=== PATIENT | female | born 1975 | race Caucasian/White ===

== ENCOUNTER 2019-06-06 09:17 | Inpatient (IN) ==
[2019-06-06] MEDS ORDERED: ASPIRIN PO ONE (09:57)
--- NOTE | 2019-06-06 10:12 | PROVIDER DOCUMENTATION ---
This chart was entered by Lore Justin Scribe, acting as scribe for Artemio Arreola MD. HPI-Chest Pain - General Source: patient - History of Present Illness-CP Location: reports: other (left anterior) Chest Pain Radiation: reports: neck (left) Quality of Pain: reports: sharp, stabbing Severity in ED: moderate Onset/Duration: last night Timing: intermittent Context/Activities at Onset: reports: light activity Modifying Factors: improves with: nothing Associated Symptoms: reports: shortness of breath, syncope (x3). denies: abdominal pain, back pain, dizziness, fever/chills, headache, nausea, vomiting Nitro Today/Relief: no nitro taken today Aspirin Treatment Today: 325 mg x 1, provided by ED Prior Chest Pain/Cardiac Workup: reports: no prior chest pain Similar Symptoms Previously?: No Recently Seen Here or By Another Healthcare Provider: No <Artemio Arreola - Last Filed: 06/06/19 11:35> <Victoriano Drew - Last Filed: 06/06/19 11:53> - General Chief Complaint: Chest Pain Stated Complaint: CHEST PAIN,DIZZINESS,HERNANDEZ Time Seen by Provider: 06/06/19 09:29 Allergies/Adverse Reactions: Patient Allergies Allergy/AdvReac Type Severity Reaction Status Date / Time Sulfa (Sulfonamide Allergy Severe anaphylacti Verified 06/06/19 09:50 Antibiotics) c morphine AdvReac Severe oversedates Verified 06/06/19 09:50 hydromorphone HCl * AdvReac Intermediate causes Verified 06/06/19 09:50 [From Dilaudid] veins to infiltrate when given IVP quetiapine [From Seroquel] AdvReac panic Verified 06/06/19 09:50 attack Home Medications: Home Medication List Medication Instructions Recorded Confirmed Last Taken Type Clonazepam 2 mg PO BID 12/02/17 09/28/18 09/26/18 21:00 History Rosuvastatin Calcium 1 tab PO QHS 05/02/18 09/28/18 09/27/18 09:00 History Sumatriptan Succinate 1 tab PO DIRECTED 05/02/18 09/28/18 09/14/18 History Trazodone HCl 1 tab PO QHS 05/02/18 09/28/18 09/26/18 21:00 History Zolpidem [Ambien] 10 mg PO QHS 05/02/18 09/28/18 09/26/18 21:00 History Metformin HCl [Metformin HCl ER] 500 mg PO HS 07/01/18 09/28/18 09/27/18 09:00 History Ibuprofen 800 mg PO PRN PRN 07/23/18 09/28/18 09/21/18 History Omeprazole 20 mg PO DAILY 07/23/18 09/28/18 08/23/18 History Cyclobenzaprine [Flexeril] 10 mg PO Q6HR 07/30/18 09/28/18 08/23/18 History Albuterol Sulfate [Proair Hfa] 8.5 gm IH PRN PRN 09/24/18 09/28/18 08/23/18 History LISINOpril [Prinivil] 20 mg PO DAILY 09/24/18 09/28/18 09/27/18 17:00 History Aspirin [Ecotrin] 325 mg PO BID #60 tablet. 09/28/18 Unknown Rx Oxycodone HCl/Acetaminophen 1 each PO Q4-6H PRN PRN #40 tablet 09/28/18 Unknown Rx [Percocet 5-325 mg Tablet] Wheelchair 1 each MC ONCE #1 each 09/28/18 Unknown Rx Cetirizine [Zyrtec] 10 mg PO DAILY #20 tab 02/21/19 Unknown Rx D-Methorphan/P-Epd/Bpm [Bromfed Dm 5 ml PO Q4H PRN #120 ml 02/21/19 Unknown Rx Liquid] Ondansetron [Zofran] 4 mg PO Q6H PRN PRN #20 tab 02/21/19 Unknown Rx Prednisone 20 mg PO DIRECTED #18 tab 02/21/19 Unknown Rx Fluoxetine [Prozac] 20 mg PO DAILY 06/06/19 06/06/19 06/06/19 08:00 History Ibuprofen [Ibu] 800 mg PO DAILY 06/06/19 06/06/19 06/05/19 08:00 History Lisinopril 20 mg PO DAILY 06/06/19 06/06/19 06/06/19 08:00 History Omeprazole 20 mg PO DAILY 06/06/19 06/06/19 06/06/19 08:00 History Sumatriptan Succinate 100 mg PO DAILY 06/06/19 06/06/19 06/03/19 08:00 History Zolpidem [Ambien] 10 mg PO DAILY 06/06/19 06/06/19 06/06/19 08:00 History - History of Present Illness-CP Nature of Presenting Problem: 43 yof presents to the ed with c/o intermittent chest pain with pain radiating into neck with syncope x3 sob all onset yesterday. pt sts called 911 last not but does not remember if they came or not. pt has never had a cardiac workup and on exam is anxious but otherwise normal (Artemio Arreola) Review of Systems - Adult - REVIEW OF SYSTEMS - ADULT Constitutional: denies: chills, fever Eyes: reports: no symptoms reported Ears, Nose, Mouth & Throat: reports: no symptoms reported Cardiovascular: reports: see HPI, chest pain, syncope (x3). denies: palpitations Respiratory: reports: see HPI, shortness of breath. denies: wheezing Gastrointestinal: denies: abdominal pain, diarrhea, nausea, vomiting Genitourinary: reports: no symptoms reported Musculoskeletal: reports: see HPI, neck pain. denies: back pain Integumentary: reports: no symptoms reported Neurological: denies: dizziness/vertigo, headache/migraines Psychiatric: reports: no symptoms reported Endocrine: reports: no symptoms reported Hematologic/Lymphatic: reports: no symptoms reported Allergic/Immunologic: reports: no symptoms reported All Other Systems: Reviewed and Negative <Artemio Arreola - Last Filed: 06/06/19 11:35> Past History - Adult - PAST MEDICAL HISTORY-ADULT Review of Records: reports: Old Records Reviewed, Nursing Assessment Review, Medications Reviewed, Social history reviewed & non-contributory. Major Childhood Illnesses: reports: denies history Cardiovascular: reports: HTN, hyperlipidemia Respiratory: reports: asthma Gastrointestinal: reports: denies history Obstetrical/Gynecological: reports: denies history Genitourinary: reports: denies history Musculoskeletal: reports: chronic pain, orthopedic injury Neurological: reports: denies history Psychiatric: reports: anxiety, depression Endocrine/Immune: reports: Diabetes Diabetes Type: Type 2 Diabetes controlled by:: Diet Other Conditions: reports: denies history - PRIOR SURGERIES/PROCEDURES Surgical/Procedure History: reports: recent surgery, hysterectomy, , orthopedic (extremity), other (cervical conization) - PRIOR HOSPITALIZATIONS Prior Hospitalizations: reports: for other non-related - IMMUNIZATION STATUS Childhood Immunizations: UTD Flu Vaccine: UTD - FAMILY HISTORY Family History: reviewed, not pertinent - SOCIAL HISTORY Smoking: quit greater than 1 year Substance Use: denies Alcohol Use Frequency: never Living Situation: family <Artemio Arreola - Last Filed: 06/06/19 11:35> Physical Exam-General - PHYSICAL EXAM-ADULT Initial Vital Signs Reviewed: Yes - CONSTITUTIONAL General Appearance: appears well, alert, anxious - EYES Eyes: PERRL/EOMI, pink conjunctivae - HEAD, EARS, NOSE, MOUTH & THROAT HENMT: moist mucous membranes, normal ENT inspection - NECK Neck: non-tender (pain resolved), full range of motion, normal inspection - RESPIRATORY Respiratory: chest non-tender, lungs clear, normal breath sounds - CARDIOVASCULAR Cardiovascular: normal peripheral pulses, regular rate, rhythm - GASTROINTESTINAL (ABDOMEN) Abdominal Exam: normal bowel sounds, non tender, soft - LYMPHATIC Lymphatic: no adenopathy - MUSCULOSKELETAL Back Exam: normal inspection, no CVA tenderness, no vertebral tenderness Extremity: normal range of motion, non-tender, normal gait, normal inspection, no pedal edema, no calf tenderness, normal capillary refill - SKIN Integumentary: normal color, normal turgor, warm/dry - NEUROLOGIC Neurologic: grossly normal, no motor/sensory deficits - PSYCHIATRIC Psych/Mental Status: normal thought content, normal thought process, oriented x 3, anxious <Artemio Arreola - Last Filed: 06/06/19 11:35> - HEART Score HEART Score: History: Moderately Suspicious HEART Score: ECG: Non-Specific Repolarization Disturbance/LBBB/PM HEART Score: Age: < or = 45 Years HEART Score: Risk Factors for Atherosclerotic Disease: 1 or 2 Risk Factors HEART Score: Troponin: < or = Normal Limit Total HEART Score:: 3 <Artemio Arreola - Last Filed: 06/06/19 11:35> Progress - PLAN OF CARE/RESULTS Result Diagrams: 06/06/19 10:22 06/06/19 10:22 - REASSESSMENT Reassessment #1 Time Reassessed: 10:47 (pt is resting in bed in no distress at this time) Status: improving Reassessment #2 Time Reassessed: 11:35 ( at bedside ) Status: unchanged - EKG 1 Time of EKG reading by physician:: 09:22 EKG Read and Signed by:: Artemio Arreola EKG Interpretation (*Must complete 3 of following elements*): Abnormal Rate: 56 Rhythm: sinus bradycardia QRS: poor R wave progression (new), other (low voltage qrs) Prior EKG Comparison: changes noted Comments: inferior infarct, age undetemiend - XRAY 1 XRAY: Bilateral XRAY Study: Chest Impression: See EMR Report (EXAM: CHEST-2 VIEWS 06/06/2019 HISTORY: chest pain TECHNIQUE: PA and lateral chest COMMENT: There is no evidence of acute cardiac or pulmonary disease. Compared to 05/02/2018 there has been no signific ant change in the appearance of the chest. IMPRESSION: No acute disease. Electronically signed by Tomi Rich 06/06/2019 10:44 AM 06/06/19 1044 Interpreting Physician: Tomi Rich MD Dictated Date/Time: 06/06/19 1043 cc: Artemio Arreola MD; None,PCP) - CONSULTS/PCP/HOSPITALIST Notification #1 *Consult/PCP/Hospitalist*: hospitalist dr price Time Discussed: 11:31 (spoke with summer [employer] ) Reason/Comments: chest pain Consult Disposition: Admit - CHANGE OF SHIFT REPORT (ED Provider) 1 Report Given and Care Transferred to:: Rajendra Time of Transfer: 10:12 Items Pending: Labs, XRAY Results, Physician Consult/Arrival <Artemio Arreola - Last Filed: 06/06/19 11:35> - PLAN OF CARE/RESULTS Result Diagrams: 06/06/19 10:22 06/06/19 10:22 <Victoriano Drew - Last Filed: 06/06/19 11:53> - PLAN OF CARE/RESULTS Progress/Plan/Lab Results: Vital Signs - 8 hr 06/06/19 09:22 06/06/19 09:30 06/06/19 09:32 Temperature 98.0 F Pulse Rate 63 Respiratory Rate 18 Blood Pressure 131/82 127/82 O2 Sat by Pulse Oximetry 98 96 97 06/06/19 09:33 06/06/19 09:40 06/06/19 09:50 Temperature Pulse Rate 73 60 66 Respiratory Rate Blood Pressure 134/84 O2 Sat by Pulse Oximetry 98 97 98 06/06/19 10:00 06/06/19 10:03 06/06/19 10:11 Temperature Pulse Rate 77 65 121 H Respiratory Rate Blood Pressure 129/82 O2 Sat by Pulse Oximetry 99 97 97 06/06/19 10:20 06/06/19 10:22 Temperature Pulse Rate 67 72 Respiratory Rate Blood Pressure 164/77 O2 Sat by Pulse Oximetry 99 99 Laboratory Results - last 24 hr 06/06/19 06/06/19 06/06/19 10:22 10:22 10:22 WBC 7.61 RBC 4.73 Hgb 12.3 Hct 38.4 MCV 81.2 MCH 26.0 L MCHC 32.0 L RDW Std Deviation 14.5 Plt Count 333 MPV 10.5 H Neut % (Auto) 52.1 Lymph % (Auto) 37.1 Emmet % (Auto) 6.6 Eos % (Auto) 4.2 Baso % (Auto) 0.0 Neut # (Auto) 3.97 Lymph # (Auto) 2.82 Emmet # (Auto) 0.50 Eos # (Auto) 0.32 Baso # (Auto) 0.00 PT INR PTT (Actin FS) Sodium 140 Potassium 4.3 Chloride 105 Carbon Dioxide 24 L Anion Gap 11 BUN 22 Creatinine 0.6 Estimated GFR/1.73 m2 > 60 BUN/Creatinine Ratio 37 Glucose 97 Calculated Osmolality 283 Calcium 9.5 Total Bilirubin 0.18 L AST 15 ALT 11 Alkaline Phosphatase 91 Creatine Kinase 222 H Creatine Kinase Index 0.6 CK-MB (CK-2) 1.42 Troponin T Bth-A-Bjomoekmvhu Pept 11 Total Protein 6.8 Albumin 4.3 Globulin 2.5 Albumin/Globulin Ratio 1.7 06/06/19 06/06/19 10:22 10:22 WBC RBC Hgb Hct MCV MCH MCHC RDW Std Deviation Plt Count MPV Neut % (Auto) Lymph % (Auto) Emmet % (Auto) Eos % (Auto) Baso % (Auto) Neut # (Auto) Lymph # (Auto) Emmet # (Auto) Eos # (Auto) Baso # (Auto) PT 12.9 INR 0.90 PTT (Actin FS) 24.8 Sodium Potassium Chloride Carbon Dioxide Anion Gap BUN Creatinine Estimated GFR/1.73 m2 BUN/Creatinine Ratio Glucose Calculated Osmolality Calcium Total Bilirubin AST ALT Alkaline Phosphatase Creatine Kinase Creatine Kinase Index CK-MB (CK-2) Troponin T < 0.010 Ruo-C-Dhkjpdiqupm Pept Total Protein Albumin Globulin Albumin/Globulin Ratio Orders Category Date Time Status Cardiac Monitoring DIRECTED Care 06/06/19 09:58 Active Oxygen Therapy- ED Nursing DIRECTED Care 06/06/19 09:58 Active Saline Loc NOW Care 06/06/19 09:58 Active CHEST-2 VIEWS [RAD] Stat Exams 06/06/19 09:58 Completed CBC WITH ELECTRONIC DIFF [HEME] Stat Lab 06/06/19 10:22 Completed CK PROFILE [SP CHEM] Stat Lab 06/06/19 10:22 Completed COMPREHENSIVE METABOLIC PANEL [CHEM] Stat Lab 06/06/19 10:22 Completed PRO B-NATRIURETIC PEPTIDE Stat Lab 06/06/19 10:22 Completed PROTIME WITH INR [COAG] Stat Lab 06/06/19 10:22 Completed PTT [COAG] Stat Lab 06/06/19 10:22 Completed TROPONIN T Stat Lab 06/06/19 10:22 Completed Aspirin Med 06/06/19 09:57 Discontinued 325 mg PO NOW ONE CP/SOB/Palp >45 yrs of Age Stat Oth 06/06/19 09:57 Ordered EKG [EKG] Stat Ther 06/06/19 09:22 Ordered Departure - Critical Care Note This patient required my direct & personal management of CC.: No <Artemio Arreola - Last Filed: 06/06/19 11:35> - Departure Date of Disposition Decision: 06/06/19 Time of Disposition Decision: 11:53 Certified Medical Emergency: Emergent - Critical Care Note This patient required my direct & personal management of CC.: No <Victoriano Drew - Last Filed: 06/06/19 11:53> - Departure DIAGNOSIS: Chest pain Disposition: ADMITTED INPATIENT 09 Condition: Stable Referrals and Follow-Ups: None,PCP [Primary Care Provider] - Attestation - Physician/ MANDI Attestation Patient care was provided by Advanced Practice Provider:: No The physician spent face to face time with patient:: Yes Advanced Practice Provider documentation review:: Supervising physician onsite and consulted in the evaluation and care of this patient. The physician did have a face to face encounter with the patient. <Artemio Arreola - Last Filed: 06/06/19 11:35> - Physician/ MANDI Attestation Patient care was provided by Advanced Practice Provider:: No The physician spent face to face time with patient:: Yes Advanced Practice Provider documentation review:: Supervising physician onsite and consulted in the evaluation and care of this patient. The physician did have a face to face encounter with the patient. <Victoriano Drew - Last Filed: 06/06/19 11:53> This chart was documented by the indicated scribe, (Lore Justin Scribe) and accurately reflects the services I performed and decisions made by Christina batista Kent A., MD, as attested by the provider's signature.
[2019-06-06 10:35] LABS: EOS# 0.32 X1000 (0.0-0.7); EOS% 4.2 % (0.0-10.0); HEMATOCRIT 38.4 % (37.0-47.0); HEMOGLOBIN 12.3 g/dL (12.0-16.0); LYMPH# 2.82 X1000 (1.2-3.4); LYMPH% 37.1 % (20.5-51.1); MCV 81.2 FL (81-99); MONO% 6.6 % (1.7-9.3); MPV 10.5 FL (7.4-10.4); NEUT# 3.97 X1000 (1.4-6.5); NEUT% 52.1 % (42.2-75.2); PLT 333 X1000 (130-400); RBC 4.73 XMIL (4.2-5.4); RDW 14.5 % (11.5-14.5); WBC 7.61 X1000 (4.8-10.8)
[2019-06-06 10:41] LABS: INR 0.9; PROTIME 12.9 Seconds (11.0-16.0); PTT 24.8 Seconds (22.3-41.8)
--- NOTE | 2019-06-06 10:46 | Diag Imaging Result Doc PS360 ---
EXAM: CHEST-2 VIEWS 06/06/2019 HISTORY: chest pain TECHNIQUE: PA and lateral chest COMMENT: There is no evidence of acute cardiac or pulmonary disease. Compared to 05/02/2018 there has been no significant change in the appearance of the chest. IMPRESSION: No acute disease. Electronically signed by Tomi Rich 06/06/2019 10:44 AM
[2019-06-06 10:53] LABS: AGAP 11; ALB/GLOB RATIO 1.7; ALBUMIN 4.3 g/dL (3.5-5.0); ALKALINE PHOSPHATASE 91 U/L (32-104); BUN 22 mg/dL (8-22); CALCIUM 9.5 mg/dL (8.8-10.2); CHLORIDE 105 mmol/L (98-107); COSMO 283; CREATININE 0.6 mg/dL (0.5-0.9); ESTIMATED GFR > 60; GLUCOSE 97 mg/dL (70-104); GOT 15 U/L (10-30); GPT 11 U/L (10-36); POTASSIUM 4.3 mmol/L (3.5-5.1); SODIUM 140 mmol/L (136-145); TCO2 24 mmol/L (25-35); TOTAL BILIRUBIN 0.18 mg/dL (0.20-1.00); TOTAL PROTEIN 6.8 g/dL (6.3-8.3)
[2019-06-06 11:05] LABS: CK PROFILE 222 U/L (24-173)
[2019-06-06 11:23] LABS: CK INDEX 0.6 (0.0-2.5); CK-MB 1.42 ng/mL (0.0-5.0)
[2019-06-06 14:27] LABS: URINE SOURCE CLEAN CATCH
[2019-06-06 14:28] LABS: HEMOGLOBIN A1C 5.5 % (4.8-6.0)
[2019-06-06 14:31] LABS: BILIRUBIN URINE NEGATIVE (NEGATIVE); BLOOD URINE NEGATIVE (NEGATIVE); COLOR YELLOW; GLUCOSE URINE NEGATIVE (NEGATIVE); KETONE URINE NEGATIVE (NEGATIVE); LEUKOCYTES URINE TRACE (NEGATIVE); NITRITE URINE NEGATIVE (NEGATIVE); PROTEIN URINE NEGATIVE (NEGATIVE); SP GRAVITY URINE 1.024; TURBIDITY URINE CLEAR (CLEAR); UROBILINOGEN URINE NORMAL (NORMAL)
[2019-06-06 14:32] LABS: URINE BACTERIA 1+ /HPF; URINE RBC <10 /HPF (<10); URINE WBC <10 /HPF (<10)
[2019-06-06 14:35] LABS: UR EPITHELIAL CELLS <10 /HPF (<10)
[2019-06-06 14:42] LABS: INR 0.9; PROTIME 12.8 Seconds (11.0-16.0)
[2019-06-06 14:43] LABS: UR AMPHETAMINES QUAL NONE DETECTED (NONE DETECT); UR BARBITUATES QUAL NONE DETECTED (NONE DETECT); UR BENZODIAZEPIN QUAL NONE DETECTED (NONE DETECT); UR CANNABINOIDS QUAL NONE DETECTED (NONE DETECT); UR COCAINE QUAL NONE DETECTED (NONE DETECT); UR METHADONE QUAL NONE DETECTED (NONE DETECT); UR OPIATES QUAL NONE DETECTED (NONE DETECT); UR OXYCODONE QUAL NONE DETECTED (NONE DETECT); UR PCP QUAL NONE DETECTED (NONE DETECT)
--- NOTE | 2019-06-06 14:58 | Diag Imaging Result Doc PS360 ---
EXAM: CT HEAD W/O CONTRAST 06/06/2019 HISTORY: syncopal episode, migraines TECHNIQUE: This exam was performed using automated exposure control, adjustment of mA or kV according to patient size, and/or use of iterative reconstruction technique. COMMENT: There is no evidence of mass effect, bleed, or abnormal extra-axial fluid collection. The visualized paranasal sinuses are clear. The calvarium is intact. Compared to 11/25/2013 the appearance the brain has not changed significantly. IMPRESSION: No evidence of acute intracranial disease. Electronically signed by Tomi Rich 06/06/2019 2:55 PM
--- NOTE | 2019-06-06 15:06 | HISTORY AND PHYSICAL ---
CHIEF COMPLAINT: Chest pain and syncopal episode. HISTORY OF PRESENT ILLNESS: Ms. Rodriguez is a 43-year-old female who presents to the ER today complaining of midsternal chest pain that radiates to the left side and into the abdomen. The patient states that this pain started last p.m. The patient states she became real diaphoretic when she started having this chest pain and very weak. The patient states that she laid down on the couch when this pain had started and she believes she called [facility] at that time. The patient says she does not remember anything else until sometime later, she woke up and was still on her couch with the phone in her hand. The phone was still on and the doors were open. The patient states that she subsequently went to bed at that time not for sure what had happened to her. She woke up this morning. She was still having chest pain. She called EMS at that time and was informed that someone did come out from the [facility] and check on her last night and that everything appeared to be fine. The patient does not remember anyone coming to her home. She states that she is not sure if she passed out or what actually could have happened last pm. The patient states that she has been having a headache for greater than a week with dizziness. The headache is to the right side. She describes it as a squeezing. The patient states she does have migraines and she takes Imitrex whenever she has a migraine but this has not been helping and this headache seems to be different than her other migraines. The patient states when she woke up this morning, she was very weak all over and she felt like her body was cramping. The patient does have a past medical history of hypertension, depression, high cholesterol, chronic migraines on Imitrex. The patient states she did have diabetes and was on metformin. However, her yacht hand took her off her metformin, stated that she did not need it any more and this was some time back. The patient is complaining of chest pain and headache at this time. Upon palpation of her chest, she does have a lot of tenderness to the midsternal area and to the left upper shoulder area. The patient states it is hard for her to hold her head forward. She has pain in the neck when she tries to do that. Her headache is described on the right side of her face and head area. The patient states she has even had some numbness in her face before from her headaches. The patient denies any nausea at this time. When asked the patient if she was having trouble with her urination, she states that she has been urinating a lot more frequently lately. The patient denies any problems with her bowels. Denies any blood in her stool or any vomiting episodes. The patient does have full strength all throughout and is awake, alert, and oriented. Pupils are reactive. There is no slurred speech. There is no facial drooping noted. PAST MEDICAL HISTORY: Chronic migraines, hypertension, hyperlipidemia, prediabetes (on metformin for some time), GERD, depression, allergies. PAST SURGICAL HISTORY: Right ankle reconstruction in 2001, three cysts removed from her ovaries in 2010, 2015, and 2016, a total hysterectomy in 2017, precancerous lesions removed from her cervix in 2001, an umbilical hernia repair in 2015, and left foot surgery in 2018. FAMILY HISTORY: Father had coronary artery disease, hypertension, MIs. He after his coronary artery bypass surgery. Mother had hypertension, cancer of the bone which subsequently metastasized and she from complications of her cancer. SOCIAL HISTORY: The patient denies any smoking or drug abuse. The patient states that she was an alcoholic but she quit drinking greater than a year ago. The patient lives in [place] and works at [employer] in [place]. ALLERGIES: Morphine, Dilaudid, and sulfa drugs. MEDICATIONS: Lisinopril 20 mg p.o. daily, Prozac 20 mg p.o. daily, Zyrtec 10 mg p.o. daily, albuterol/ProAir haler p.r.n. as needed, omeprazole 20 mg p.o. daily, Ambien 10 mg p.o. at bedtime, sumatriptan 100 mg p.o. p.r.n. headaches, ibuprofen 800 mg t.i.d. p.r.n. pain. LABORATORY DATA AND DIAGNOSTICS: White blood cell count 7.61, hemoglobin 12.3, hematocrit 38.4, platelet count 10.2. PT 12.9, INR 0.9, PTT 24.8. Sodium 140, potassium 4.3, chloride 105, carbon dioxide 24, BUN 22, creatinine 0.6, estimated GFR is greater than 60, glucose is 97, calcium is 9.5. Bilirubin 0.1, AST is 15, ALT is 11, alkaline phosphatase 91. Creatine kinase is 222, CK index is 0.6, CK-MB is 1.42, troponin is less than 0.01. ProBNP is 11. Chest x-ray shows no acute disease. REVIEW OF SYSTEMS: A 12 point review of systems was performed and all were negative except for as stated above in the HPI. PHYSICAL EXAMINATION: VITAL SIGNS: Temperature 98.0 degrees, heart rate 60, blood pressure 122/86, O2 saturation 97% on room air. Height 5 feet 4 inches, weight 207 pounds. GENERAL: This is a 43-year-old, female, lying on the ER stretcher. She is in no acute distress at this time. Follows all commands. Answers all questions appropriately. HEENT: Atraumatic, normocephalic. Pupils equal, round, reactive to light. Mucous membranes are moist. NECK: Supple. No lymphadenopathy. Trachea is midline. No JVD or bruits noted. CARDIOVASCULAR: Regular rate and rhythm. S1 and S2. No murmurs, gallops, or rubs appreciated. RESPIRATORY: Lung sounds are clear with equal chest excursion. Respirations are nonlabored with no accessory muscle usage. GI: Abdomen is soft, nontender, nondistended. Bowel sounds are present x4. NEUROLOGIC: The patient is awake, alert, and oriented. Follows all commands. Cranial nerves intact. MUSCULOSKELETAL: Full distal strength noted. No abnormalities. No deformities. EXTREMITIES: No clubbing, cyanosis, or edema noted. DP and PT pulses are present and palpable. SKIN: Warm, dry, and intact. No rashes, bruises. No diaphoresis. The patient does have tenderness with palpation to the midsternal chest region and left upper shoulder. ASSESSMENT AND PLAN: 1. We will admit this patient to the medical floor to rule out acute coronary syndrome versus unstable angina versus costochondritis. The patient is tender to the midsternal area upon palpation and the upper shoulder area. CK and troponins are negative at this time. An EKG is negative. We will repeat serial CK and troponins, and EKG. We will perform a echocardiogram in the morning on this patient. Consult Cardiology. 2. Syncopal episode. We will work this patient up for a possible transient ischemic attack. This could be related to her migraines. We will do a CT of the head, do carotid Doppler studies. Consult Dr. Fernández in the morning. Do MRI of the brain tomorrow. Start this patient on aspirin daily. 3. Hypertension. We will restart the patient's home blood pressure medicines and monitor the patient closely. BP is stable at this time. 4. Prediabetes. The patient's glucose in the emergency room is within normal range. We will do an A1c on the patient just to check and see how she has been doing. We will not order FSBS at this time. 5. Hyperlipidemia. Ordered a lipid profile. We will start the patient on Lipitor daily. We will admit this patient to the medical floor, place her on telemetry, and start her on a diabetic diet. We will reorder labs and chest x-ray on her in the morning. We will do the CT of the head as ordered. We ordered MRI of the brain on Friday. We are consulting Dr. Fernández and Dr. Contreras. Echocardiogram is ordered. Serial CK and troponins and EKGs are ordered. Repeat labs in the am. Dictated by DANIELLE Márquez for Phuc Luke MD cc: MD Ambrocio Wilder MD MTDD
[2019-06-06 15:09] LABS: CK INDEX 0.6 (0.0-2.5); CK-MB 1.35 ng/mL (0.0-5.0)
[2019-06-06] MEDS: TYLENOL PO PRN (16:34)
--- NOTE | 2019-06-06 16:41 | PROGRESS NOTE ---
DATE: 06/06/2019 SUBJECTIVE: The patient was admitted early this morning by the hospitalist with headache, syncope, chest pain. She was admitted to rule out cardiac origin of the symptoms and also for carotid ultrasound to rule out etiology for syncope or TIA. CT scan was normal. Urine drug screen was negative for controlled substances. She takes Klonopin 2 mg b.i.d., Flexeril 10 mg q.6 hours, ibuprofen 800 mg p.r.n., lisinopril 20 mg 1 daily, metformin, omeprazole, Percocet, prednisone, Crestor, Imitrex, trazodone, and Ambien. She stated that the only control substance she takes now is Ambien. She has not taken any preventative medicine for migraines. OBJECTIVE: Chest is clear. There is mild left costosternal tenderness to palpation. DIAGNOSTIC STUDIES: Enzymes have been normal. EKG is not available. PLAN: Carotid ultrasound tomorrow morning, start Trokendi XR 100 mg daily to prevent migraines. cc: Ambrocio Tse MD
--- NOTE | 2019-06-06 17:19 | HISTORY AND PHYSICAL ---
ADDENDUM: Cardiovascular: Regular rate and rhythm. Pulmonary: Bilateral breath sounds clear to auscultation. GI: Was soft, nontender, nondistended. Bowel sounds are positive. In any case, she is a patient of Dr. Tse and I guess he has taken over care. I did not realize that until after the fact. But any case she came in for chest pain, atypical, and we will continue to follow. Dr. Tse will resume care. This is a [id number] encounter note with Leena Madrid. cc: MD Ambrocio Wilder MD
[2019-06-06] MEDS ORDERED: LIPITOR PO SCH (21:00)
--- NOTE | 2019-06-06 21:04 | CARDIOLOGY CONSULTATION ---
DATE: 06/06/2019 CONSULTATION REQUESTED BY: The hospitalist service. PRIMARY PHYSICIAN: Robbie SANTOS in [place]. CHIEF COMPLAINT: Chest pain and syncope. HISTORY: Mrs. Rodriguez is a 43-year-old female. She was in her usual state of health until yesterday about 5:30 p.m. She was sitting on a couch when all the sudden she started feeling hurting and heaviness in the chest. This went on for a while. She called her sister and then call 911 and then she lost consciousness. The sister got to the house and by the time the sister got there, she was back to her senses. Eventually, she decided to stay home. The EMS did not get into the house. She took her evening medication, went to bed. The discomfort had practically subsided. When she got up in the morning today, June 06, she felt some chest discomfort and decided to come to the emergency room seeking evaluation. Upon arrival, they did a blood work including troponin levels. They have done 1 level at 10:22 in the morning and one at 2:17 p.m. ProBNP is normal. Her EKG shows sinus rhythm with a DC of 150 millisecond, QRS duration 86 milliseconds. No convincing evidence of any obvious abnormality. The patient's creatinine, BUN, and hemoglobin as well as white cell count are normal. Chest x-ray has been reported as no acute disease and a head CT shows no evidence of acute intracranial disease. The patient is feeling better. PAST HISTORY: Positive for the fact that she has had episodes of chest pain at least twice in the past. Once in 2001, checked in the ER. They told her she had anxiety. In 2015 under the name of Tory Montelongo, she underwent evaluation by Dr. Watts who did a stress test and found no abnormalities. She has been relatively fine and up until the onset of this pain yesterday. She does have history of migraine headaches. She typically takes Imitrex as needed no more than once or twice a month. She has hypertension. She has hyperlipidemia. She is obese. She has acid reflux. SURGICAL HISTORY: She had hysterectomy recently in 2018. A benign tumor was noted. She has had ovarian cyst in the past. She had umbilical hernia. She broke her left foot and had to have open reduction internal fixation in the past. SOCIAL HISTORY: She is currently from her . She says that she has been 5 times. She has 2 children from 1 twin , age 10 years, 1 boy and 1 girl. She is not a smoker. Not a drinker. She works at [employer] for the past just 1 month. Previously she was working at a different [employer]. She is in production sorter at daytime. FAMILY HISTORY: Father actually was our patient, Tom Lala who of complications of heart surgery. Mother is also . She is 1 of 4 siblings. ALLERGIC: To sulfa drugs, Dilaudid, morphine, and possibly Seroquel. HOME MEDICATIONS: At the time of this admission include albuterol, aspirin 325, cetirizine 10 mg daily, clonazepam twice a day, Flexeril every 6 hours, Prozac, ibuprofen, lisinopril, metformin, omeprazole, Zofran, prednisone, rosuvastatin, zolpidem. This is not totally confirmed. The medicines that she has been put on in the hospital include Lipitor 10, Zyrtec 10, Prozac 20, lisinopril 20, omeprazole 20, Topamax 50 twice a day, and zolpidem. REVIEW OF SYSTEMS: She really has no exertional angina. She does have some limitations to stand on her feet for too long because of previous foot surgery. She has no dyspnea. No previous syncope. No hearing or visual problems. No abdominal issues. She used to be morbidly obese. She has dropped from 310 pounds to 205 pounds. Body mass index is 30.3. Multiple systems were investigated and nothing else positive. PHYSICAL EXAMINATION: Vital signs: Blood pressure is 124/68, temperature 97.9 degrees, pulse 62, respirations 20. General: She is awake, alert, oriented, in no distress. HEENT: Unremarkable. Chest: Clear to auscultation and percussion. Heart: Sounds regular and rhythmic. No gallop or murmur. Abdomen: Nontender. Extremities: Showed no edema. Neurological: Nonfocal. Follows commands. Moves 4 extremities. Her blood work shows really no other issue of any significant importance. Her drug screen was negative. IMPRESSION: 1. Patient presenting with what appears to be very atypical chest pain. 2. History of migraine headaches. 3. Postmenopausal. 4. Family history of ischemic heart disease. 5. History of hypertension. 6. History of migraine headaches. 7. obesity RECOMMENDATION: We will obtain an echocardiogram and a walking Lexiscan myocardial perfusion stress test to evaluate this patient's chest pain. Further advice will be forthcoming. Thank you again for the opportunity to participate in her evaluation. cc: MD Ambrocio Block MD MTDD
[2019-06-06] MEDS: AMBIEN PO SCH (21:38)
[2019-06-06] MEDS: TOPAMAX PO SCH (21:38)
[2019-06-06 22:31] LABS: CK INDEX 0.5 (0.0-2.5); CK-MB 1.35 ng/mL (0.0-5.0)
[2019-06-07] MEDS: TYLENOL PO PRN ×2 (04:05→20:00)
[2019-06-07] MEDS: ZOFRAN IV PRN ×3 (05:32→19:59)
[2019-06-07 06:33] LABS: EOS# 0.41 X1000 (0.0-0.7); EOS% 4.5 % (0.0-10.0); HEMATOCRIT 36.7 % (37.0-47.0); HEMOGLOBIN 11.9 g/dL (12.0-16.0); IMM GRAN# 0.02 X1000 (0.0-0.04); IMM GRAN% 0.2 % (0.0-0.5); LYMPH# 3.02 X1000 (1.2-3.4); LYMPH% 33.1 % (20.5-51.1); MCHC 32.4 g/dL (33-37); MCV 80.1 FL (81-99); MONO# 0.57 X1000 (0.11-0.59); MONO% 6.3 % (1.7-9.3); MPV 10.7 FL (7.4-10.4); NEUT% 55.9 % (42.2-75.2); PLT 333 X1000 (130-400); RBC 4.58 XMIL (4.2-5.4); RDW 14.3 % (11.5-14.5); WBC 9.12 X1000 (4.8-10.8)
[2019-06-07] MEDS: PRILOSEC PO SCH (06:42)
[2019-06-07 07:19] LABS: MAGNESIUM 1.8 mg/dL (1.5-2.7); PHOSPHORUS 4.6 mg/dL (2.7-4.5)
--- NOTE | 2019-06-07 07:52 | CONSULTATION ---
DATE OF CONSULTATION: 06/07/2019 LOCATION: Room 419A. SUBJECTIVE: Ms. Rodriguez is 33 years old, and she had possible syncopal episode over the weekend. History from the patient is that she had a physically active afternoon 2 days ago. She had a sense of being weak all over with some chest pain. She sat down to rest. When she stood, she noted a sense of dizziness. She sat back down and called 911. Her report is that she next realized she was sitting in the same place, telephone was on the floor showing that an hour had passed. Apparently, EMS responded and she did not answer the door. She took her zolpidem, slept that night, got up yesterday, had some chest pain, and presented to the hospital for evaluation. She feels recovered now. She reports prior episodes of "anxiety attacks" characterized by lightheadedness and sometimes transient altered awareness, but not clear unconsciousness. There has never been seizure diagnosed. There is no history of serious head injury. She has never had stroke or other neurologic event. She reports that she stopped using ethanol about a year ago. She does not use illicit drugs. She has a longstanding history of migraine. This has been managed satisfactorily with abortive medicines only, never prescribed daily medicine for migraine. Recently, she takes one-half of a 100 mg Sumatriptan tablet, averaging a dose once a month or so with benefit. Last Sumatriptan dose was a few days before recent episode. Workup here includes noncontrast CT showing nothing remarkable. MRI scan is ordered. Admission lab showed CK 276. Other lab was unremarkable. Urine drug screen was all negative. PHYSICAL EXAMINATION: Vital Signs: She has been afebrile here. Systolic blood pressures have ranged 110s to 140s. Heart rate has ranged 50s to 80s. General: Ms. Rodriguez is awake, alert, attentive, and appropriate. She is oriented. Memory is good. Head and Neck: Unremarkable. Neurologic: Visual middleton are full. Facial sensation and motility are symmetric. Extraocular movements are full. Gag is intact. Tongue is midline. Hearing is good. Shoulder shrug is equal. Strength is normal in the arms and legs. Limb tone is symmetric. She did well on finger- to-nose testing bilaterally. She reports good pinprick appreciation over the limbs. I did not test her gait. IMPRESSION: Episode of altered awareness, reported 1-hour memory gap, etiology not certain. She might have fallen asleep. She might have had a seizure. She might have been daydreaming. She is neurologically intact now. Negative CT is reassuring. MRI is ordered. I will add electroencephalogram. Further plans will depend on those reports and on her clinical course. I encouraged her to stand slowly, to sit quickly if lightheaded, to try to remain well hydrated, and to use good sense with her activities. Thank you for asking Neurology to see Ms. Rodriguez. cc: MD Ambrocio Nair III, MD MTDD
--- NOTE | 2019-06-07 07:53 | ECHO REPORT ---
ORDER DATE: 06/06/2019 INTERPRETING PHYSICIAN: Dr. Contreras REQUESTING PHYSICIAN: Hospitalist CLINICAL INDICATIONS: This is a 43-year-old female with chest pain. M-MODE MEASUREMENTS: Right ventricle: cm. Left ventricle end diastole: 5.6 cm. Left ventricle end systole: 2.9 cm. Posterior wall: 1.8 cm. Interventricular septum: 0.8 cm. Left atrium: 3.7 cm. Aortic root: 2.9 cm. SUMMARY OF 2-DIMENSIONAL IMAGIN. The left ventricular function is normal. Ejection fraction is estimated at 55% to 60%. There is no wall motion abnormality noted. 2. Right ventricle appears to be normal. 3. Mitral valve looks normal. Color flow mapping is unremarkable. The pulse wave Doppler of mitral inflow shows mild reversal of the E and the A ratio. Ratio is 0.7. 4. Tissue Doppler of septal and lateral mitral annulus averages 6 cm. 5. Pulmonary venous flow is normal. 6. There is no diastolic dysfunction. 7. The aortic valve looks normal. Color flow mapping is unremarkable. 8. Pulmonic valve looks normal. Color flow mapping is unremarkable. 9. Tricuspid valve shows no significant regurgitation. 10.Inferior vena cava is not dilated. 11.Pulmonary pressure is estimated at 23 mmHg. 12.The pulmonic valve is within normal range. 13.There is no pericardial effusion, mass or thrombus. 14.Right-sided chambers appear to be normal. CONCLUSIONS: In summary, this study shows: 1. Normal left ventricular systolic function. 2. No diastolic dysfunction. 3. Normal pulmonary pressure. 4. Unremarkable aortic, pulmonic, tricuspid and mitral valves. cc: MD Ambrocio Block MD
[2019-06-07] MEDS: PROZAC PO SCH (08:07)
[2019-06-07] MEDS: PRINIVIL PO SCH (08:07)
[2019-06-07] MEDS: TOPAMAX PO SCH ×2 (08:07→21:06)
[2019-06-07] MEDS: ZYRTEC PO SCH (08:08)
[2019-06-07] MEDS: ASPIRIN PO SCH (08:08)
--- NOTE | 2019-06-07 08:19 | EKG Report ---
Test Performed on : 06/06/2019 09:22:53 AM Test Reason : CP Blood Pressure : / mmHG Vent. Rate : 056 BPM Atrial Rate : 056 BPM P-R Int : 158 ms QRS Dur : 086 ms QT Int : 434 ms P-R-T Axes : 027 -07 023 degrees QTc Int : 418 ms Sinus bradycardia. Low voltage QRS Inferior infarct , age undetermined Cannot rule out Anterior infarct , age undetermined Abnormal ECG When compared with ECG of 23-JUL-2018 08:51, Minimal criteria for Anterior infarct are now present No significant change was found Unconfirmed Result
--- NOTE | 2019-06-07 12:17 | Diag Imaging Result Doc PS360 ---
EXAM: MRI BRAIN W/WO CONTRAST INDICATION: tia vs migraine COMPARISON: None. FINDINGS: There is no evidence of acute infarct. There are a several scattered tiny foci of T2/FLAIR hyperintensity in the subcortical white matter bilaterally. These are very nonspecific. It is possible that it represents very early microangiopathy. These can also be seen transiently in patients with migraines. The white matter signal is unremarkable, otherwise. There is no discrete intracranial mass, mass effect, or intracranial hemorrhage. There is no evidence of abnormal intracranial enhancement. The surrounding soft tissues and bony structures are essentially unremarkable. IMPRESSION: Several tiny scattered subcortical white matter T2/FLAIR hyperintense foci that are highly nonspecific. Please see above discussion. Electronically signed by Jamie Stevenson 06/07/2019 12:15 PM
[2019-06-07] MEDS ORDERED: LEXISCAN ONE (12:52)
--- NOTE | 2019-06-07 16:48 | EEG REPORT ---
DATE: 06/07/2019 EEG NUMBER: [id number]. COMMENT: This is a digitally recorded EEG on a 33-year-old patient with recent altered awareness, possible collapse, question of seizure. FINDINGS: During waking, medium amplitude 10 hertz posterior rhythm is present symmetrically and reacts normally to eye opening. Background contains polymorphic and rhythmic theta frequencies over the frontal and central regions symmetrically. Hyperventilation with fair effort did not significantly alter the record. Photic stimulation produced some symmetric entrainment. Drowsing occurred with appearance of more generalized slowing and attenuation of the posterior rhythm. Stage 2 sleep was recorded briefly. No definite epileptiform discharge was identified. INTERPRETATION: Normal EEG. CORRELATION: The absence of epileptiform discharges on a single EEG does not exclude the clinical diagnosis of seizures, but there is nothing on this record to suggest the presence of a seizure disorder. cc: MD Sanjay Nair III, MD MTDD
--- NOTE | 2019-06-07 16:58 | Diag Imaging Result Document ---
PROCEDURE NAME: MYOCARDIAL PERF SCAN, STR/REST - 06/07/2019 INTERPRETING PHYSICIAN: Se Watts MD PROCEDURE: Lexiscan Cardiolite stress test. SUMMARY: 1. Lexiscan was infused per standard protocol. 2. There was no chest pain. 3. Stress electrocardiogram was negative for ischemia. This was a walking Lexiscan Cardiolite stress test. 4. Following Lexiscan infusion, Cardiolite was injected; 14.6 millicuries of Cardiolite was injected for the rest phase, 42 mCi of Cardiolite was injected for the stress phase. 5. Gated SPECT images were obtained in standard views. 6. Images revealed significant chest wall and diaphragmatic attenuation. 7. Normal left ventricular cavity size. 8. There is low-grade fixed defect in the left ventricular apex suggestive of attenuation defect. 9. There is no evidence of ischemia. 10. Left ventricular ejection fraction by gated SPECT was 74%. CONCLUSIONS: 1. No chest pain. 2. Negative Lexiscan stress electrocardiogram. 3. Myocardial perfusion images revealed normal left ventricular cavity size. There is no evidence of ischemia. 4. There is low-grade fixed defect in the left ventricular apex with normal wall motion and significant breast attenuation. This is likely to represent attenuation defect. Low probability of scar. 5. Left ventricular ejection fraction by gated SPECT was 74%. cc: MD Poncho Hui MD
--- NOTE | 2019-06-07 17:33 | CARDIOLOGY PROGRESS NOTE ---
DATE: 06/07/2019 CHIEF COMPLAINT: Chest pain. SUBJECTIVE: Ms. Rodriguez is feeling fine. She is not having any more chest pain. She was evaluated by Neurology Skip Miner. OBJECTIVE: Blood pressure 121/80, temperature 98.3 degrees, pulse 55, respirations 18. General: She is awake, alert and oriented, in no acute distress. HEENT: Unremarkable. Chest: Clear to auscultation and percussion. Heart: Heart sounds are heard. Regular rate and rhythm. No gallop, no murmur. Abdomen: Soft, nontender. Extremities: No edema. Neurologic: Follows commands. Moves all extremities. DIAGNOSTIC DATA: Blood work - her troponin levels were checked 3 times and they are all negative. Lipid panel shows total cholesterol 304, LDL 214, triglycerides 391, HDL 37. Her echocardiogram performed last night is normal. Her nuclear stress test done today using walking lexiscan protocol is normal. There is no evidence of inducible ischemia nor cardiomyopathy nor valvular disease. IMPRESSION: 1. Chest pain, very atypical, probably noncardiac. 2. Significant hyperlipidemia. 3. Family history of ischemic heart disease. 4. Migraine headaches. 5. Loss of consciousness of uncertain etiology. RECOMMENDATIONS: 1. At this time from a cardiac viewpoint, I believe the best intervention will be to add rosuvastatin at high doses or Lipitor high doses to her regimen. She really has a very high level of LDL cholesterol and that places her at long-term risk for cardiac events at a high level. 2. I would suggest initiating at least 40 mg Lipitor and then have this monitored as an outpatient. She may be discharged home. Must follow up with PCP. cc: MD Sanjay Block MD [facility]
[2019-06-07] MEDS ORDERED: LIPITOR PO SCH (21:00)
[2019-06-07] MEDS: AMBIEN PO SCH (21:06)
--- NOTE | 2019-06-07 21:41 | PROGRESS NOTE ---
DATE: 06/07/2019 43-year-old white female and was admitted on my service, patient of Dr. Tse on 06/06 yesterday for came in with syncopal episodes and chest pain. I did review the detailed reports by the hospitalist. PAST MEDICAL HISTORY: Reported chronic migraine, hypertension, hyperlipidemia, prediabetic, depression, allergies, metabolic syndrome, acid reflux disease. PAST SURGICAL HISTORY: Reported right ankle reconstruction, total hysterectomy by Dr. Zambrano in 2018, umbilical hernia repair, left foot surgery. MEDICINES: Reviewed. ALLERGIES: Sulfa drugs, morphine. The patient is feeling better. Appreciated Cardiology consult. EXAMINATION: Temperature is 98.4 degrees, pulse 77, blood pressure 116/74.HEENT: Within normal limits. Neck: Supple. No carotid bruit. Chest: Bilateral air entry. Heart: Sounds are regular. Belly: Is soft, obese, nontender. Good bowel sounds. No peripheral edema, cyanosis. No neurologic deficits. INVESTIGATIONS: CBC. White cell count 9.1, hematocrit 36.7, platelets 333,000. PT/INR is normal. Sodium 140, potassium 4.3, chloride 105, BUN 22, creatinine 0.6, A1c 5.8, magnesium 1.8. CK, troponin were normal. Cholesterol 304, triglycerides 391, HDL 37. Urinalysis is clear. Urine tox screen is negative. Urine cultures are negative. EEG is normal. MRI of the brain, several tiny white matter disease. No evidence of infarct, early microangiopathy. Echocardiography report, normal LV systolic function. No valvular heart disease seen. Myocardial perfusion scan negative for ischemia, EF 74%. Carotid Dopplers are pending. Chest x-ray, no acute disease. EKG abnormal with Q-waves in the inferior leads. ASSESSMENT AND PLAN: 1. Near syncope. Workup is negative. Consider loop monitor. 2. 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 3. Hyperlipidemia. Increasing Lipitor 80 mg daily. 4. Chronic insomnia, Ambien. Discontinue aspirin. 5. Depression on Prozac. 6. Hypertension on Prinivil 20 mg daily. 7. Will discussed the plan of care with family and will discharge in the morning. LEVEL OF DOCUMENTATION: 35 minutes. cc: Sanjay Alejandro MD
[2019-06-08] MEDS: PRILOSEC PO SCH (05:59)
[2019-06-08 07:35] VITALS: BP 117/59
--- NOTE | 2019-06-08 07:58 | PROGRESS NOTE ---
DATE: 06/08/2019 Ms. Rodriguez has not had any further episodes of altered awareness, memory gap, collapse. Her EEG was normal, showing no epileptiform discharge or other evidence of a tendency to seizure. The cardiology suggestions are noted. I do not have anything to add from a neurology standpoint. I encouraged her to stay well hydrated, to take her medicines as directed, to report any further problems. We briefly reviewed headache management options and I do not think she needs to make any changes now. I will be glad to see Ms. Rodriguez later as an outpatient, if needed. Thanks for asking us to see her here. cc: MD Sanjay Nair III, MD MTDD
[2019-06-08] MEDS: TYLENOL PO PRN (08:51)
[2019-06-08] MEDS: ASPIRIN PO SCH (08:55)
[2019-06-08] MEDS: ZYRTEC PO SCH (08:55)
[2019-06-08] MEDS: PRINIVIL PO SCH (08:56)
[2019-06-08] MEDS: PROZAC PO SCH (08:56)
[2019-06-08] MEDS: TOPAMAX PO SCH (09:01)
[2019-06-08] MEDS: ZOFRAN IV PRN (09:38)
--- NOTE | 2019-06-09 20:53 | DISCHARGE SUMMARY ---
ADMISSION DATE: 06/06/2019 DISCHARGE DATE: 06/08/2019 DISCHARGING DIAGNOSIS: Near syncope, etiology to be determined. SECONDARY DIAGNOSES: 1. Metabolic syndrome. 2. Acid reflux disease. 3. Migraine headaches. 4. Hypertension. 5. Depression. 6. Hyperlipidemia. 7. Insomnia. CONSULTS: 1. Dr. Fernández. 2. Dr. Watts. PROCEDURES: 1. Myocardial perfusion scan: No reversible ischemia. Ejection fraction 74%. 2. EEG: Normal EEG. 3. MRI of the brain: Several tiny subcortical ischemic changes, early microangiopathy. 4. Echocardiography findings: Normal LV systolic function. No significant valvular heart disease seen. 5. Chest x-ray: No acute disease. 6. EKG: Normal sinus, Qs in the inferior leads, nothing acute. 7. Carotid Dopplers are pending. BRIEF HISTORY: Please see the H and P that was done by the hospitalist. In brief, she is a 43- year-old white female, patient of Dr. Tse/nurse practitioner in [place], who came in with near syncope, chest pain. HOSPITAL FOLLOWUP: Patient was monitored in Telemetry. Further workup revealed unremarkable. Findings were reassuring. Patient is doing better. FOLLOWUP ON PENDING: Carotid Doppler studies. LABORATORY DATA: CBC: White cell count 8.1, hematocrit 36, platelets 333,000. PT/INR is normal. SMA 7 is normal. A1c 5.5. Magnesium 1.8. CK 276, MB index negative, negative troponin. ProBNP was normal. Triglycerides 390, cholesterol 304, LDL 213, HDL 37. Urinalysis clear. Urine tox screen negative. All the findings were reassuring. If she continues to have problem, consider 30 day loop monitor. Follow up on carotid Doppler studies. For migraine headaches, patient is taking Imitrex as needed and Topamax 50 mg p.o. b.i.d., lisinopril 20 mg daily for blood pressure, Prozac 20 mg daily, Ambien 10 mg for sleeping, acid reflux disease on Prilosec 20 daily, allergies on Zyrtec 10 mg daily, hyperlipidemia on Lipitor 40 daily, continue on aspirin. Follow up in my office or with Dr. Tse or nurse practitioner in [place]. cc: MD Dr Jolene Lindsey Dr.
== END 2019-06-08 09:49 | disposition home or self-care (01) | DRG 312 ==
LOC: ED 09:17 → 4N 14:35
PROVIDERS: ADMIT Internal Medicine; ATTEND Internal Medicine
CPT/HCPCS: 70450; 70553; 71020; 71046; 78452; 80053; 80061; 80101; 80301; 80307; 80324; 80345; 80346; 80353; 80358; 80361; 80365; 81001; 82550; 82553; 82948; 83036; 83721; 83735; 83880; 83992; 84100; 84443; 84484; 85025; 85610; 85730; 87088; 93005; 93017; 93306; 93880; 95816; A9270; A9500; A9579; G0431; G0434; G0479; G0480; J2405; J2785; XXXXX

== ENCOUNTER 2020-01-30 21:06 | Inpatient (IN) ==
[2020-01-30] MEDS ORDERED: ASPIRIN PO ONE (21:20)
[2020-01-30 21:32] LABS: BASO# 0.03 X1000 (0.0-0.2); BASO% 0.2 % (0.0-0.8); EOS# 0.33 X1000 (0.0-0.7); EOS% 2.6 % (0.0-10.0); HEMATOCRIT 34.3 % (37.0-47.0); HEMOGLOBIN 10.9 g/dL (12.0-16.0); IMM GRAN# 0.05 X1000 (0.0-0.04); IMM GRAN% 0.4 % (0.0-0.5); LYMPH# 4.59 X1000 (1.2-3.4); LYMPH% 36.8 % (20.5-51.1); MCH 24.5 PG (27-31); MCHC 31.8 g/dL (33-37); MCV 77.3 FL (81-99); MONO# 0.72 X1000 (0.11-0.59); MONO% 5.8 % (1.7-9.3); MPV 10.3 FL (7.4-10.4); NEUT# 6.76 X1000 (1.4-6.5); NEUT% 54.2 % (42.2-75.2); PLT 444 X1000 (130-400); RBC 4.44 XMIL (4.2-5.4); RDW 15.7 % (11.5-14.5); WBC 12.48 X1000 (4.8-10.8)
[2020-01-30 21:40] LABS: INR 0.95; PROTIME 12.8 Seconds (11.0-16.0); PTT 27.2 Seconds (22.3-41.8)
--- NOTE | 2020-01-30 21:43 | EKG Report ---
Test Performed on : 01/30/2020 9:14:07 PM Test Reason : CP Blood Pressure : / mmHG Vent. Rate : 072 BPM Atrial Rate : 072 BPM P-R Int : 160 ms QRS Dur : 086 ms QT Int : 408 ms P-R-T Axes : 029 -02 039 degrees QTc Int : 446 ms Normal sinus rhythm. Low voltage QRS Borderline ECG When compared with ECG of 06-JUN-2019 09:22, No significant change was found Unconfirmed Result
--- NOTE | 2020-01-30 21:48 | Diag Imaging Result Doc PS360 ---
EXAM: CHEST-2 VIEWS - 01/30/2020 HISTORY: CP TECHNIQUE: Chest two views COMPARISON: 06/06/2019 FINDINGS: Heart size is normal. The lungs appear clear. There is no pleural effusion or pneumothorax identified. There is mild thoracic spondylosis noted. IMPRESSION: No evidence of acute disease. Electronically signed by Guille Meneses 01/30/2020 9:46 PM
[2020-01-30 22:00] LABS: AGAP 17; ALB/GLOB RATIO 1.5; ALBUMIN 4.1 g/dL (3.5-5.0); ALKALINE PHOSPHATASE 108 U/L (32-104); BUN 15 mg/dL (8-22); CALCIUM 8.9 mg/dL (8.8-10.2); CHLORIDE 101 mmol/L (98-107); CK PROFILE 170 U/L (24-173); COSMO 279; CREATININE 0.7 mg/dL (0.5-0.9); ESTIMATED GFR > 60; GLUCOSE 145 mg/dL (70-104); GOT 18 U/L (10-30); GPT 15 U/L (10-36); POTASSIUM 3.6 mmol/L (3.5-5.1); SODIUM 138 mmol/L (136-145); TCO2 20 mmol/L (25-35); TOTAL BILIRUBIN < 0.15 mg/dL (0.20-1.00); TOTAL PROTEIN 6.8 g/dL (6.3-8.3)
[2020-01-30] MEDS ORDERED: TORADOL IV ONE (22:37)
[2020-01-31] MEDS: NITROGLYCERIN SL PRN ×3 (01:13→08:00)
--- NOTE | 2020-01-31 01:35 | PROVIDER DOCUMENTATION ---
This chart was entered by Vanessa Stevenson Scribe, acting as scribe for Giovanni Younger MD. HPI-Chest Pain - General Chief Complaint: Chest Pain Stated Complaint: CHEST PAIN, THROAT FEELS TIGHT, ARMS FEEL NUMB Time Seen by Provider: 01/30/20 22:30 Source: patient Allergies/Adverse Reactions: Patient Allergies Allergy/AdvReac Type Severity Reaction Status Date / Time Sulfa (Sulfonamide Allergy Severe anaphylacti Verified 07/30/19 07:32 Antibiotics) c morphine AdvReac Severe oversedates Verified 07/30/19 07:32 hydromorphone HCl * AdvReac Intermediate causes Verified 07/30/19 07:32 [From Dilaudid] veins to infiltrate when given IVP quetiapine [From Seroquel] AdvReac panic Verified 07/30/19 07:32 attack Home Medications: Home Medication List Medication Instructions Recorded Confirmed Last Taken Type Fluoxetine [Prozac] 20 mg PO DAILY 06/06/19 01/31/20 06/05/19 09:00 History Lisinopril 20 mg PO DAILY 06/06/19 01/31/20 06/06/19 08:00 History Zolpidem [Ambien] 10 mg PO DAILY 06/06/19 01/31/20 06/06/19 08:00 History Metformin E.r. [Glucophage Xr] 1,000 mg PO BID 01/31/20 01/31/20 Unknown History Omeprazole 40 mg PO DAILY 01/31/20 01/31/20 Unknown History Sumatriptan Succinate 100 mg PO DAILY PRN 01/31/20 01/31/20 Unknown History - History of Present Illness-CP Nature of Presenting Problem: 44 yowf c/o central cp radiating to jaw, neck, bilat shoulders and arms starting . pt pain worsens w/movement. 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 pt has associated nausea but no sob, vomiting or diarrhea. hx of ptsd, pre dm and fatty liver. takes metformin 1000 2x daily. allergy to dilaudid, morphine and sulfa. Location: reports: central Chest Pain Radiation: reports: jaw, arms, neck, shoulders Severity in ED: mild Onset/Duration: 3 days ago Timing: still present Context/Activities at Onset: reports: none Modifying Factors: improves with: nothing Associated Symptoms: reports: nausea Review of Systems - Adult - REVIEW OF SYSTEMS - ADULT Constitutional: reports: no symptoms reported. denies: chills, fever, fatique Eyes: reports: no symptoms reported Ears, Nose, Mouth & Throat: reports: no symptoms reported Cardiovascular: reports: see HPI, chest pain. denies: edema, orthopnea, palpitations Respiratory: reports: no symptoms reported. denies: pleurisy, shortness of breath, wheezing Gastrointestinal: reports: see HPI, nausea. denies: abdominal pain, diarrhea, vomiting Genitourinary: reports: no symptoms reported Musculoskeletal: reports: no symptoms reported, joint pain (cp rad to bilat shoulders, arms), neck pain (cp radiates to neck). denies: back pain Integumentary: reports: no symptoms reported Neurological: reports: no symptoms reported Psychiatric: reports: no symptoms reported Endocrine: reports: no symptoms reported Hematologic/Lymphatic: reports: no symptoms reported Allergic/Immunologic: reports: no symptoms reported All Other Systems: Reviewed and Negative Past History - Adult - PAST MEDICAL HISTORY-ADULT Review of Records: reports: Nursing Assessment Review, Medications Reviewed, Social history reviewed & non-contributory. Major Childhood Illnesses: reports: denies history Cardiovascular: reports: HTN, hyperlipidemia Respiratory: reports: asthma Gastrointestinal: reports: denies history Obstetrical/Gynecological: reports: denies history Genitourinary: reports: denies history Musculoskeletal: reports: chronic pain, orthopedic injury Neurological: reports: denies history Psychiatric: reports: anxiety, depression Endocrine/Immune: reports: Diabetes Diabetes controlled by:: PO Meds Other Conditions: reports: denies history - PRIOR SURGERIES/PROCEDURES Surgical/Procedure History: reports: recent surgery, hysterectomy, , orthopedic (extremity), other (cervical conization) - PRIOR HOSPITALIZATIONS Prior Hospitalizations: reports: for other non-related - IMMUNIZATION STATUS Childhood Immunizations: UTD Flu Vaccine: UTD - FAMILY HISTORY Family History: reviewed, not pertinent - SOCIAL HISTORY Smoking: other (former smoker) Substance Use: none/never Physical Exam-General - PHYSICAL EXAM-ADULT Initial Vital Signs Reviewed: Yes - CONSTITUTIONAL General Appearance: alert, mild distress. negative: cachetic, lethargic, slow to respond - EYES Eyes: PERRL/EOMI - HEAD, EARS, NOSE, MOUTH & THROAT HENMT: normocephalic/atraumatic, moist mucous membranes - NECK Neck: non-tender, full range of motion, supple, normal inspection - RESPIRATORY Respiratory: chest non-tender, lungs clear, normal breath sounds, no pleuratic chest pain - CARDIOVASCULAR Cardiovascular: normal peripheral pulses, regular rate, rhythm, no edema, no gallop, no JVD, no murmur. negative: extra beats, friction rub, irregularly irregular - CHEST (BREASTS) Chest/Breast: no tenderness (cp is not reproducible on palp). negative: tenderness - GASTROINTESTINAL (ABDOMEN) Abdominal Exam: normal bowel sounds, non tender, soft - MUSCULOSKELETAL Back Exam: normal inspection Extremity: normal range of motion, non-tender, normal inspection - SKIN Integumentary: normal color, normal turgor, warm/dry - NEUROLOGIC Neurologic: grossly normal, no motor/sensory deficits - PSYCHIATRIC Psych/Mental Status: normal mood/affect, normal thought content, normal thought process, oriented x 3 - HEART Score HEART Score: History: Slightly Suspicious HEART Score: ECG: Non-Specific Repolarization Disturbance/LBBB/PM HEART Score: Age: < or = 45 Years HEART Score: Risk Factors for Atherosclerotic Disease: > or = 3 Risk Factors or History of Atherosclerotic Disease HEART Score: Troponin: 1-3x Normal Limit Total HEART Score:: 4 Progress - PLAN OF CARE/RESULTS Progress/Plan/Lab Results: Vital Signs - 8 hr 01/30/20 21:24 01/31/20 00:13 Temperature 98.4 F Pulse Rate 71 90 Respiratory Rate 16 28 H Blood Pressure 157/92 133/93 O2 Sat by Pulse Oximetry 98 99 Laboratory Results - last 24 hr 01/30/20 01/30/20 01/30/20 21:22 21:22 21:22 WBC RBC Hgb Hct MCV MCH MCHC RDW Std Deviation Plt Count MPV Immature Gran % (Auto) Neut % (Auto) Lymph % (Auto) [place] % (Auto) Eos % (Auto) Baso % (Auto) Immature Gran # (Auto) Neut # (Auto) Lymph # (Auto) [place] # (Auto) Eos # (Auto) Baso # (Auto) PT INR PTT (Actin FS) D-Dimer, Quantitative Sodium 138 Potassium 3.6 Chloride 101 Carbon Dioxide 20 L Anion Gap 17 BUN 15 Creatinine 0.7 Estimated GFR/1.73 m2 > 60 BUN/Creatinine Ratio 21 Glucose 145 H Calculated Osmolality 279 Calcium 8.9 Total Bilirubin < 0.15 L AST 18 ALT 15 Alkaline Phosphatase 108 H Creatine Kinase 170 Troponin T High Sens 28 H Ziz-[id number]-Vfhdorkjkpx Pept 78 Total Protein 6.8 Albumin 4.1 Globulin 2.7 Albumin/Globulin Ratio 1.5 01/30/20 01/30/20 01/30/20 21:22 21:22 21:22 WBC 12.48 H RBC 4.44 Hgb 10.9 L Hct 34.3 L MCV 77.3 L MCH 24.5 L MCHC 31.8 L RDW Std Deviation 15.7 H Plt Count 444 H MPV 10.3 Immature Gran % (Auto) 0.4 Neut % (Auto) 54.2 Lymph % (Auto) 36.8 [place] % (Auto) 5.8 Eos % (Auto) 2.6 Baso % (Auto) 0.2 Immature Gran # (Auto) 0.05 H Neut # (Auto) 6.76 H Lymph # (Auto) 4.59 H [place] # (Auto) 0.72 H Eos # (Auto) 0.33 Baso # (Auto) 0.03 PT 12.8 INR 0.95 PTT (Actin FS) 27.2 D-Dimer, Quantitative 0.28 Sodium Potassium Chloride Carbon Dioxide Anion Gap BUN Creatinine Estimated GFR/1.73 m2 BUN/Creatinine Ratio Glucose Calculated Osmolality Calcium Total Bilirubin AST ALT Alkaline Phosphatase Creatine Kinase Troponin T High Sens [id number]-[id number]-Mifopjsknqj Pept Total Protein Albumin Globulin Albumin/Globulin Ratio 01/31/20 00:03 WBC RBC Hgb Hct MCV MCH MCHC RDW Std Deviation Plt Count MPV Immature Gran % (Auto) Neut % (Auto) Lymph % (Auto) [place] % (Auto) Eos % (Auto) Baso % (Auto) Immature Gran # (Auto) Neut # (Auto) Lymph # (Auto) [place] # (Auto) Eos # (Auto) Baso # (Auto) PT INR PTT (Actin FS) D-Dimer, Quantitative Sodium Potassium Chloride Carbon Dioxide Anion Gap BUN Creatinine Estimated GFR/1.73 m2 BUN/Creatinine Ratio Glucose Calculated Osmolality Calcium Total Bilirubin AST ALT Alkaline Phosphatase Creatine Kinase Troponin T High Sens 31 H Cgj-Q-Btupbamrlov Pept Total Protein Albumin Globulin Albumin/Globulin Ratio Orders Category Date Time Status Cardiac Monitoring DIRECTED Care 01/30/20 21:20 Active Oxygen Therapy- ED Nursing DIRECTED Care 01/30/20 21:20 Active Saline Loc NOW Care 01/30/20 21:20 Active CHEST-2 VIEWS [RAD] Stat Exams 01/30/20 21:20 Completed CBC WITH ELECTRONIC DIFF [HEME] Stat Lab 01/30/20 21:22 Completed CK PROFILE [SP CHEM] Stat Lab 01/30/20 21:22 Completed COMPREHENSIVE METABOLIC PANEL [CHEM] Stat Lab 01/30/20 21:22 Completed D-DIMER [COAG] Stat Lab 01/30/20 21:22 Completed PRO B-NATRIURETIC PEPTIDE Stat Lab 01/30/20 21:22 Completed PROTIME WITH INR [COAG] Stat Lab 01/30/20 21:22 Completed PTT [COAG] Stat Lab 01/30/20 21:22 Completed TROPONIN T HIGH SENSITIVITY Stat Lab 01/30/20 21:22 Completed TROPONIN T HIGH SENSITIVITY Stat Lab 01/31/20 00:03 Completed Aspirin Med 01/30/20 21:20 Discontinued 325 mg PO NOW ONE Ketorolac [Toradol] Med 01/30/20 22:37 Discontinued 15 mg IV NOW ONE Nitroglycerin Sl [Nitroglycerin] Med 01/31/20 00:56 Active 0.4 mg SL Q5M PRN PRN CP/SOB/Palp >45 yrs of Age Stat Oth 01/30/20 21:20 Ordered EKG [EKG] Stat Ther 01/30/20 21:08 Draft Result Diagrams: 01/30/20 21:22 01/30/20 21:22 - REASSESSMENT Reassessment #1 Time Reassessed: 00:56 Status: worsening (pt c/o cp and now of sob.) - EKG 1 Time of EKG reading by physician:: 21:14 EKG Read and Signed by:: Giovanni Younger EKG Interpretation (*Must complete 3 of following elements*): Normal (borderline) Rate: 72 Rhythm: NSR [place]: normal QRS: other (low voltage) [place] Interval: normal ST Wave: normal - XRAY 1 XRAY Study: Chest Impression: See EMR Report (EXAM: CHEST-2 VIEWS - 01/30/2020 HISTORY: CP TECHNIQUE: Chest two views COMPARISON: 06/06/2019 FINDINGS: Heart size is normal. The lungs appear clear. There is no pleural effusion or pneumothorax identified. There is mild thoracic spondylosis noted. IMPRESSION: No evidence of acute disease. Electronically signed by Guille Meneses 01/30/2020 9:46 PM 01/30/20 2146) - CONSULTS/PCP/HOSPITALIST Notification #1 *Consult/PCP/Hospitalist*: Dr Santos Time Discussed: 01:35 Consult Disposition: Will see in ED, Admit Departure - Departure Date of Disposition Decision: 01/31/20 Time of Disposition Decision: 01:35 DIAGNOSIS: Chest pain, SOB (shortness of breath) Disposition: ADMITTED INPATIENT 09 Certified Medical Emergency: Emergent Condition: Fair Referrals and Follow-Ups: None,PCP [Primary Care Provider] - - Critical Care Note This patient required my direct & personal management of CC.: No Attestation - Physician/ MANDI Attestation Patient care was provided by Advanced Practice Provider:: No The physician spent face to face time with patient:: Yes Advanced Practice Provider documentation review:: Supervising physician onsite and consulted in the evaluation and care of this patient. The physician did have a face to face encounter with the patient. This chart was documented by the indicated scribe, (Vanessa Stevenson Scribe) and accurately reflects the services I performed and decisions made by me, Giovanni Younger MD, as attested by the provider's signature.
[2020-01-31 02:58] LABS: HEMOGLOBIN A1C 5.7 % (4.8-6.0)
[2020-01-31] MEDS ORDERED: KLOR-CON PO ONE (03:16)
--- NOTE | 2020-01-31 04:04 | HISTORY AND PHYSICAL ---
CHIEF COMPLAINT: Chest pain. HISTORY OF PRESENT ILLNESS: Ms. Rodriguez is a 44-year-old female who was admitted on 06/06/2019 for chest pain. I believe she had a stress test which was grossly normal. It was thought to not be cardiac in nature. She does have a history of hypertension and diabetes mellitus type 2. However, she comes in tonight with the complaint of chest pain that has been intermittent off and on over the weekend. She also states that she has a history of anxiety. The chest pain sounded substernal. She had episodes of shortness of breath and nausea and vomiting with it. Her cardiac enzymes are grossly normal. Her HEART score is around 4. She will be admitted in observation status for further evaluation and treatment. PAST MEDICAL HISTORY: Chronic migraines, hyperlipidemia, GERD, depression and please see HPI for other. PREVIOUS SURGICAL HISTORY: Right ankle reconstruction in 2001, 3 cysts removed from her ovaries in 2010, 2015 and 2016, a total hysterectomy in 2017, precancerous lesion removed from her cervix in 2019, umbilical hernia repair 2015, left foot surgery 2017. FAMILY HISTORY: Father had coronary artery disease, hypertension and myocardial infarction. He is after having coronary artery bypass surgery. Mother had hypertension, cancer of the bone with subsequent metastasis and she from complications of her cancer. SOCIAL HISTORY: Denies any tobacco or illicit drugs. 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 ALLERGIES: Morphine, Dilaudid and sulfa drugs, Seroquel as well. HOME MEDICATIONS: Metformin 1000 mg p.o. b.i.d., Prozac 20 mg p.o. daily, lisinopril 20 mg p.o. daily omeprazole 40 mg p.o. daily, sumatriptan 100 mg p.o. daily and Ambien 10 mg p.o. daily. REVIEW OF SYSTEMS: Fourteen-point review of systems conducted with the patient. Pertinent positives listed above in the HPI. All other systems reviewed and found to be negative. PHYSICAL EXAMINATION: VITAL SIGNS: Temperature 98.4, pulse 90, respirations 28, blood pressure 133/93, oxygen saturation 99% on room air. GENERAL: Pleasant 44-year-old female lying in the ER stretcher. She is alert and oriented times 3 in no acute distress. HEENT: Head is atraumatic, normocephalic. Pupils equal, round, reactive to light. Extraocular eye movement is intact. Sclerae are anicteric. Conjunctiva is pink. Oral mucosa is moist. NECK: Supple. No JVD. No thyromegaly. Trachea is midline. No cervical lymphadenopathy. CARDIAC: S1, S2 appreciated. No murmurs, gallops, rubs. LUNGS: Clear to auscultation bilaterally. No rhonchi, wheezes, rales. Symmetric rise and fall with respirations. ABDOMEN: Soft, nondistended, nontender. Bowel sounds present all 4 quadrants, normoactive. No pulsatile mass. No organomegaly. EXTREMITIES: No clubbing, cyanosis or edema. Two-plus pedal pulses bilaterally. GENITOURINARY: No bladder distention. Patient voids. Otherwise deferred. NEUROLOGICAL: Alert and oriented times 3. No focal motor deficits. Otherwise nonfocal examination. SKIN: Warm, dry, intact. No acute lesions or rash. DIAGNOSTIC DATA: Chest x-ray grossly normal. EKG: Sinus rhythm, no change from previous EKG. LABORATORY DATA: WBC 12.48. Hemoglobin 10.9. Hematocrit 34.3. Platelet count 444. Coagulation studies within normal limits. Sodium 138. Potassium 3.6. Chloride 101. Carbon dioxide 20. BUN 15. Creatinine 0.7. Glucose 145. Troponin is 28 and 31 respectively. These were high sensitivity and ultimately negative. ASSESSMENT: 1. Atypical chest pain, rule out acute myocardial infarction. 2. Diabetes mellitus type 2. 3. Hypertension. 4. Hyperlipidemia. PLAN: Admit patient to the medical floor. Trend cardiac enzymes. Consult Cardiology. She just recently had a stress test 6 months ago that was grossly normal. Feel like this is a low probability of cardiac event. We will continue to monitor patient. Continue her home medications. I believe she was on Lipitor at one point but this was not on her home medication list. We will restart Lipitor 40 mg, check a direct lipid. Further recommendations per patient clinical course. Dictated by DANIELLE Hector for Jelani Santos MD I have performed a face to face diagnostic evaluation. Labs/ xrays- reviewed. Exam- Chest- clear, CV-regular. A/P- Chest Pain- Admit NPO, cardiac work up. Dr. Santos cc: JanesDANIELLE David MD [facility]ITALTerrence
[2020-01-31] MEDS ORDERED: IMITREX PO PRN (05:21)
[2020-01-31] MEDS ORDERED: LOVENOX SUBQ SCH ×2 (05:22→21:00)
[2020-01-31] MEDS: HUMALOG SUBQ SCH ×4 (06:41→20:29)
[2020-01-31] MEDS: PRILOSEC PO SCH (06:42)
--- NOTE | 2020-01-31 07:34 | EKG Report ---
Test Performed on : 01/31/2020 07:22:46 AM Test Reason : cp Blood Pressure : / mmHG Vent. Rate : 064 BPM Atrial Rate : 064 BPM P-R Int : 162 ms QRS Dur : 092 ms QT Int : 444 ms P-R-T Axes : 048 -04 061 degrees QTc Int : 458 ms Normal sinus rhythm. with sinus arrhythmia. Possible Left atrial enlargement Borderline ECG When compared with ECG of 30-JAN-2020 21:14, (Unconfirmed) No significant change was found Confirmed by Julio César Villatoro MD ([id number]) on 02/01/2020 9:55:12 PM
[2020-01-31] MEDS: ZOFRAN IV PRN (08:12)
[2020-01-31] MEDS ORDERED: PRINIVIL PO SCH (09:00)
[2020-01-31] MEDS ORDERED: AMBIEN PO PRN (09:00)
[2020-01-31] MEDS ORDERED: LIPITOR PO SCH (09:00)
[2020-01-31] MEDS ORDERED: PROZAC PO SCH (09:00)
[2020-01-31] MEDS: TYLENOL PO PRN ×2 (11:46→20:29)
[2020-01-31] MEDS ORDERED: ASPIRIN PO SCH (12:30)
[2020-01-31] MEDS ORDERED: HEPARIN 1000 UNITS/NS 2,000 UNIT/1,000 ML IV.SOLN ONE (12:57)
--- NOTE | 2020-01-31 13:07 | CARDIOLOGY CONSULTATION ---
DATE: 01/31/2020 HISTORY OF PRESENT ILLNESS: Ms. Rodriguez is a 44-year-old lady, who was admitted with chest pain. She has strong family history of coronary artery disease, and had a stress test last year which was normal. She has history of diabetes, hypertension as well. She had episode of severe chest pain which she describes as pressure-like sensation associated with radiation to the neck and jaw, and noted significant tightness in her jaw as well. These symptoms lasted for about 5 to 10 minutes. In addition, it was associated with substernal chest pain. In the past last year, she had an episode of syncope which had complete workup which was negative. However, patient also states that associated with that episode of syncope, she did also have chest pain. Stress test at that time was normal. Currently, she is not having any chest pain. She has been ruled out for myocardial infarction by cardiac enzymes. REVIEW OF SYSTEM: General: A 14-point review of systems was done. GI System: There is no history of nausea, vomiting, diarrhea. There is no history of hematemesis or melena. Central nervous system: No focal weakness to suggest a CVA or TIA. System: There is no dysuria or hematuria. PAST MEDICAL HISTORY: 1. Diabetes. 2. Hypertension. 3. Gastroesophageal reflux disease. 4. Migraine headaches. ALLERGIES: She is allergic to morphine, Dilaudid and sulfonamides. OTHER SURGERIES: 1. Include right ankle reconstruction. 2. Three cysts removed from her ovaries in 2010, 2015 and 2016. 3. Total hysterectomy 2017. 4. Pre cancerous lesion removed from cervix 2019. 5. Umbilical hernia repair 2015. 6. Left foot surgery 2017 FAMILY HISTORY: Positive for coronary artery disease. Her father is from coronary artery disease in his 60s; he first had coronary artery disease in his late 40s. Mother had hypertension and cancer. PHYSICAL EXAMINATION: Vital Signs: On examination, blood pressure was 133/93. Cardiovascular system: Normal jugular venous pressure. There is no thyromegaly. There is no carotid bruit. First and second heart sounds were heard. There is no S3, S4, or gallop. Respiratory system: Normal air entry. There are no crepitations or rhonchi. Abdomen: Soft, obese, nontender. There was no guarding or rigidity. Bowel sounds were heard. Central nervous system: Alert and oriented, was moving all 4 extremities. Extremities: Examination of extremities revealed no pedal edema. HEENT: Atraumatic, normocephalic. Pupils were equal and reacting to light. LABORATORY EXAMINATION: Revealed sodium 138, potassium 3.6. BUN 15, creatinine 0.7. Patient was ruled out for myocardial infarction by cardiac enzymes. Total cholesterol was 285 and her LDL cholesterol was 219. IMAGING STUDIES: Chest x-ray was unremarkable. ASSESSMENT AND PLAN: Ms. Tory Rodriguez is a 44-year-old lady with history of hypercholesterolemia, diabetes, hypertension, strong family history of coronary artery disease. Had chest pain and syncope last year; was ruled out for myocardial infarction by stress test. Had a Neurology workup as well which was unremarkable. She is admitted with chest pain which lasted for about 5 to 10 minutes at best; however, it was severe with radiating to the jaw and she had significant tightness. Given her symptoms, strong family history of hyperlipidemia, I recommended that she undergo left heart catheterization. Risks, benefits, and alternatives were explained. Patient will be set up for left heart catheterization shortly. For hypertension, she is on medications--lisinopril. For hyperlipidemia, she is on Lipitor 40. I have not made any changes at the present time. For diabetes, she is on lispro. I have not made any changes. Gastroesophageal reflux disease. She is on omeprazole. I have not made any changes to her medication. We will place her on aspirin. Thank you for the consult. We will follow hospital course. cc: Se Watts MD
[2020-01-31] MEDS ORDERED: ANESTHESIA PB SET 88 IN 5742 ONE (13:46)
[2020-01-31] MEDS ORDERED: NS 1,000 ML ONE (13:46)
[2020-01-31] MEDS ORDERED: VERSED ONE (13:47)
[2020-01-31] MEDS ORDERED: DILAUDID ONE (14:32)
--- NOTE | 2020-01-31 16:42 | PROGRESS NOTE ---
DATE: 01/31/2020 SUBJECTIVE: Ms. Rodriguez presented with chest pain. A 44-year-old female admitted on 06/06/2019 for chest pain. I believe she had a stress test, which is grossly normal. It was thought not to be cardiac in nature. She does have a history of hypertension and diabetes mellitus type 2, and general anxiety with what she said she was diagnosed with posttraumatic stress disorder. She came in complaining of chest pain and intermittent over the weekend. She has a history of anxiety and the chest pain was substernal, but radiated to both jaws. It just seemed to wax and wane, but never really left her not associated with exertion. She did not feel like she had diaphoresis, but did feel like she had palpitations. PAST MEDICAL HISTORY: Also includes chronic migraines, hyperlipidemia, gastroesophageal reflux disease, depression and anxiety. PAST SURGICAL HISTORY: Right ankle reconstruction 2001, 3 cysts removed from ovaries 2010, 2015, and 2016. Total hysterectomy 2017. Precancerous lesion from her cervix in 2019. Umbilical hernia 2015. Left foot surgery in 2017. Atypical chest pain. DISCUSSION: Her cardiac enzymes really did not suggest ischemia. Her troponin was a little high at 31 and the second one was 33. Cardiology has evaluated. They are going to plan on doing a heart catheterization. She has a strong family history of coronary artery disease. She has had chest pain and syncope last year, ruled out for myocardial infarction with a stress test. She had neurology workup which is unremarkable. She was admitted with chest pain. It lasted about 5 or 10 minutes at best, however, was severe, radiating to the jaw, and she had significant tightness. I think they are going to proceed with heart catheterization. cc: Dedrick Renteria MD
--- NOTE | 2020-01-31 16:55 | EKG Report ---
Test Performed on : 01/31/2020 4:42:45 PM Test Reason : Post heart cath Blood Pressure : / mmHG Vent. Rate : 068 BPM Atrial Rate : 068 BPM P-R Int : 156 ms QRS Dur : 086 ms QT Int : 432 ms P-R-T Axes : 036 -05 026 degrees QTc Int : 459 ms Normal sinus rhythm. Normal ECG When compared with ECG of 31-JAN-2020 07:22, (Unconfirmed) No significant change was found Confirmed by Julio César Villatoro MD ([id number]) on 02/02/2020 6:07:57 PM
[2020-01-31] MEDS ORDERED: LOPRESSOR PO SCH (17:15)
--- NOTE | 2020-01-31 21:57 | CARDIAC CATH REPORT ---
PROCEDURE PERFORMED: Left heart catheterization with selective coronary angiography and left ventriculography. ENTRY SITE: Right femoral artery. CATHETERS USED: A 5-Belarusian JL4, 3DRC, and angled pigtail. TECHNIQUE: After intravenous sedation with Versed, local anesthesia with lidocaine was applied over the right femoral artery. Arterial access was established with placement of a 5-Belarusian sheath in the right femoral artery using modified Seldinger technique. Selective coronary angiography was performed. Following this, the patient developed some chest discomfort radiating to the jaw, consistent with angina. There were no acute changes on ECG. Chest discomfort resolved after sublingual nitroglycerin 0.4 mg and Dilaudid 1 mg intravenously. Left heart catheterization was subsequently performed followed by left ventriculography. Upon completion of the procedure, arterial sheath was removed from the right femoral artery with hemostasis facilitated by manual pressure. The patient tolerated the procedure without apparent complications. FINDINGS: Hemodynamics: Aortic pressure 133/80 with a mean of 103. Left ventricular pressure 160 over EDP of 5. Comments on hemodynamics: There is no significant gradient across the aortic valve demonstrated on pullback from the left ventricle. ANGIOGRAPHY: 1. Left ventriculogram: Left ventricle is of normal size without wall motion abnormality evident on DONOVAN projection. The estimated left ventricular ejection fraction is approximately 65%. There is no significant mitral regurgitation. 2. Left main coronary artery: The left main coronary artery is free of significant coronary stenosis. 3. Left anterior descending coronary artery: The left anterior descending coronary artery and its branches are free of significant coronary stenosis. 4. Ramus intermedius branch: A large ramus intermedius branch is present and is free of significant coronary stenosis. 5. Left circumflex coronary artery: The left circumflex coronary artery gives rise to a tiny 1st obtuse marginal proximally and a tiny 2nd obtuse marginal at midvessel. The mid left circumflex coronary artery demonstrates a segment of severe atherosclerotic narrowing with up to 80 to 90 percent stenosis. 6. Right coronary artery: The dominant right coronary artery gives rise to a conus/right ventricular branch at its ostium, which can be selectively engaged separately. The distal right coronary artery demonstrates a severe (90%) stenosis before the origin of the posterior descending artery and continuation of the right coronary artery. CONCLUSIONS: 1. Normal left ventricular function without wall motion abnormality evident. 2. Right dominant coronary anatomy as described, with severe segmental stenosis in mid to distal left circumflex coronary artery, and severe stenosis in the distal right coronary artery as described. RECOMMENDATIONS: Favor pursuit of percutaneous coronary intervention on left circumflex coronary artery and right coronary artery. cc: Festus Albert MD MTDD
[2020-02-01] MEDS: TYLENOL PO PRN (04:48)
[2020-02-01 05:59] LABS: HEMATOCRIT 33.5 % (37.0-47.0); HEMOGLOBIN 10.5 g/dL (12.0-16.0); MCHC 31.3 g/dL (33-37); MCV 79.8 FL (81-99); MPV 10.3 FL (7.4-10.4); RBC 4.2 XMIL (4.2-5.4); WBC 9.94 X1000 (4.8-10.8)
[2020-02-01 06:03] LABS: INR 1.03; PROTIME 13.6 Seconds (11.0-16.0)
[2020-02-01 06:19] LABS: IRON SATURATION 25 %; TIBC 324 ug/dL; TOTAL IRON 82 ug/dL (49-151); UNBOUND IRON 242 ug/dL (112-346)
[2020-02-01 06:25] LABS: AGAP 11; BUN 18 mg/dL (8-22); CALCIUM 9.1 mg/dL (8.8-10.2); CHLORIDE 106 mmol/L (98-107); COSMO 284; CREATININE 0.6 mg/dL (0.5-0.9); ESTIMATED GFR > 60; GLUCOSE 105 mg/dL (70-104); MAGNESIUM 2.1 mg/dL (1.5-2.7); POTASSIUM 4.6 mmol/L (3.5-5.1); SODIUM 141 mmol/L (136-145); TCO2 24 mmol/L (25-35)
[2020-02-01] MEDS: HUMALOG SUBQ SCH (06:27)
[2020-02-01] MEDS: PRILOSEC PO SCH (06:27)
[2020-02-01 06:50] LABS: FERRITIN 16 ng/mL (13-150)
[2020-02-01] MEDS: ZOFRAN IV PRN (07:27)
[2020-02-01 07:55] VITALS: BP 113/74
--- NOTE | 2020-02-01 19:34 | DISCHARGE SUMMARY ---
ADMISSION DATE: 01/31/2020 DISCHARGE DATE: 02/01/2020 PRIMARY CARE PROVIDER: None. MINERAL TECHNOLOGIST: Dr. Watts. DISCHARGE DIAGNOSES: 1. Atypical chest pain. She was acute myocardial infarction rule out. The patient underwent a left heart catheterization by Dr. Albert. She was found to have distal RCA severe stenosis at 90. Her mid left circumflex showed an 80% to 90% stenosis with EF of 65%. Recommendations were to pursue percutaneous coronary intervention of the left circumflex and right coronary artery. Patient was transferred to [facility] cardiac short-stay. 2. Diabetes mellitus. 3. Hypertension. 4. Hyperlipidemia. HOSPITAL COURSE: Briefly, Ms. Rodriguez is a 44-year-old female who carries a past medical history of chronic migraines, hyperlipidemia, GERD, depression, has been ruled out for myocardial infarction back in December 2018 with a normal stress test. She came in complaining of intermittent chest pain over the weekend associated with shortness of breath, nausea and vomiting. Cardiac enzymes had been normal. She had heart score of around 4. She was admitted in observation status, underwent a left heart catheterization with Dr. Albert that revealed severe segmental stenosis to the mid to distal left circumflex and severe stenosis of the distal right coronary artery and was recommended that she be transferred to [facility] for percutaneous intervention. PHYSICAL EXAMINATION: Vital Signs: Temperature 98.4 degrees, heart rate 68, respirations 21, blood pressure 113/74, O2 is 95% on room air. FOLLOWUP: Ms. Rodriguez is discharged to cardiac short-stay at [facility] to undergo percutaneous intervention to the left circumflex and RCA as recommended by Dr. Albert. The patient was discharged by Dr. Watts at 8:30 this morning. Dictated by DANIELLE Monsivais for Jayden Santana MD cc: Jayden Santana MD
[2020-02-01] MEDS ORDERED: LIPITOR PO SCH (21:00)
== END 2020-02-01 08:35 | disposition short-term general hospital (02) | DRG 287 ==
LOC: ED 21:06 → SUATTDRO 01-31 05:12 → INTOOBSV 01-31 05:12 → 3N 01-31 05:12 → OBSVTOIN 01-31 05:12 → 2N 01-31 16:20
PROVIDERS: ATTEND Internal Medicine